=== PATIENT | female | born 1980 | race Caucasian/White ===

== ENCOUNTER 2022-07-02 14:58 | Emergency (ER) | payer OTHER, SELFPAY ==
[2022-07-02 15:12] VITALS: BP 125/75; PULSE 79; RESP 16; TEMP 37; O2SAT 100
--- NOTE | 2022-07-02 17:32 | ED.BACK ---
HPI - Back Pain/Injury General Chief Complaint: Back Pain/Injury Stated Complaint: Lower left back pain Time Seen by Provider: 07/02/22 17:25 Source: patient, RN notes reviewed and old records reviewed Mode of arrival: ambulatory Limitations: no limitations History of Present Illness HPI Narrative: 42-year-old female who presents to [facility] with left lower back for the past 4 days , increases when she tries to bend Patient denies any radiation of pain to legs. Patient denies any known injury to back states that she did go hunting over the weekend. Patient denies any tingling or numbness to legs, no difficulty passing urine or passing stools, or any saddle paraesthesia. Patient denies any urinary burning,frequency or pain with urination, no history of kidney stones. Patient has not had COVID vaccinations or any flu shot, did have COVID in June of 2021. MD elicited complaint: back pain Onset (ago): day(s) (4) Pain scale (0-10): 6 Exacerbating factors: other (bending) Treatments prior to arrival: NSAIDS Work related injury: No Related Data Allergies Allergy/AdvReac Type Severity Reaction Status Date / Time No Known Allergies Allergy Verified 07/02/22 16:29 Review of Systems Review of Systems: CONSTITUTIONAL: Denies fever, chills, or sweats. EYES: Denies visual changes, redness, or discharge. ENT: Denies rhinorrhea, congestion, sore throat, or otalgia. CARDIOVASCULAR: Denies chest pain, palpitations, or edema. RESPIRATORY: Denies cough or dyspnea. GASTROINTESTINAL: Denies abdominal pain, nausea, vomiting, or diarrhea. GENITOURINARY: Denies dysuria or hematuria. SKIN: Denies rash or itching. MUSCULOSKELETAL: Reports left lower back pain, non radiating,no joint pain, or myalgia. NEUROLOGIC: Denies headache, numbness, or weakness. PSYCHIATRIC: Denies anxiety or depression. All systems reviewed & are unremarkable except as noted in HPI and below [facility] Past Medical History Medical History (Updated 07/07/22 @ 21:27 by Anay Bond NP) COVID-19 06/2021 Social History Social History (Updated 07/07/22 @ 21:27 by Anay Bond NP) Smoking packs per day: 1 Smoking cigarettes per day: 20.0 Years smoked: 15 Smoking pack-years: 15.00 Smoking status: Current every day smoker Alcohol intake: current Alcohol use details: social Substance use type: does not use Gender identity (if verbalized by the patient): Female Comments At time of signature, agree with nursing past medical, surgical, social and family history. There is no relevant family history pertinent to the presenting complaint Exam Narrative: GENERAL: Well-appearing, well-nourished, and in no acute distress. HEAD: Normocephalic, atraumatic. EYES: PERRLA and EOMI. ENT: Nares clear, no rhinorrhea or epistaxis. Mucous membranes moist.TM' normal with good light reflex, throat pink with no lesions or swelling. NECK: Supple.no lymphadenopathy CHEST: Clear to auscultation. No respiratory distress.SAO2 100% on room air HEART: Regular rate and rhythm. No murmur heard. Normal peripheral pulses. ABDOMEN: Soft, nontender, nondistended, normal active bowel sounds.No CVA tenderness EXTREMITIES: Normal range of motion. No edema.Pain to left lower back nonradiating into buttocks or to legs, no tingling or numbness to lower extremitis. SKIN: Warm, dry, no rash NEURO: No focal deficits. Alert and oriented x3. Course Course Emergency Course: Patient is aware of diagnosis, understands and agrees to treatment plan.? Anticipatory guidance given.? Patient agrees to follow-up as directed and is aware of reasons to seek care at the emergency department. Portions of this record may have been created with voice recognition software Level of Care: Express Care Visit Vital Signs Vital signs: Vital Signs Temperature 37.0 C 07/02/22 15:12 Pulse Rate 79 07/02/22 15:12 Respiratory Rate 16 07/02/22 15:12 Blood Pressure 125/75 07/02/22 15:12 Pul
== END 2022-07-02 17:50 | disposition home or self-care (01) ==
PROVIDERS: Emergency Provider Registered Nurse
DX: S33.5XXA Sprain of ligaments of lumbar spine, initial encounter (principal); X58.XXXA Exposure to other specified factors, initial encounter; Z86.16 Personal history of COVID-19
CPT/HCPCS: 81003; 99213; G0463

== ENCOUNTER 2023-09-26 11:00 | Emergency (ER) | payer OTHER, SELFPAY ==
--- NOTE | ~2023-09-26 | XR_ITS ---
EXAMINATION: XR chest 2V DATE: 09/26/2023 11:31 INDICATION: Chest pain. Wheezing. Congestion. TECHNIQUE: Frontal and lateral views of the chest were obtained. COMPARISON: None. FINDINGS: There is no pneumonia, pleural effusion, or pneumothorax. The heart size is normal. IMPRESSION: 1. No acute cardiopulmonary disease. Reviewed, dictated and finalized at location A. YLENE TORCH BURNER
[2023-09-26 11:05] VITALS: BP 129/73; PULSE 114; RESP 16; TEMP 37.2; O2SAT 100
--- NOTE | 2023-09-26 11:07 | ECG_ITS ---
Measurements Intervals [place] Rate: 91 P: 75 IA: 101 QRS: 70 QRSD: 82 T: 66 QT: 354 QTc: 436 Interpretive Statements SINUS RHYTHM WITH SHORT IA INTERVAL BORDERLINE ECG NO PREVIOUS ECG AVAILABLE FOR COMPARISON Electronically Signed On 09-26-2023 16:55:59 RN ICU by Alan Oakes D.O.
--- NOTE | 2023-09-26 11:53 | ED.GENADULT ---
HPI - General Adult General Chief complaint: Chest Pain Stated complaint: Chest Pain/Shoulders Source: patient Mode of arrival: ambulatory Limitations: no limitations History of Present Illness HPI narrative: Pt presents for evaluation of chest pain. Symptoms started on Thursday of this week. Symptoms lasted until Thursday. She had recurrence of her symptoms again today. Pain is fairly diffuse, described as squeezing, rated 6/10 severity. Symptoms migrate up her neck into her ears bilaterally. She denies cough, shortness of breath, fever, chills, nausea, vomiting, sore throat. No recent sick contacts to her knowledge. She smokes approximately 1 ppd. no personal or family history of DVT/PE. No leg swelling. Mother has cardiomyopathy. Related Data Home Medications Medication Instructions Recorded Confirmed No Home Medications 09/26/23 09/26/23 Allergies Allergy/AdvReac Type Severity Reaction Status Date / Time No Known Allergies Allergy Verified 09/26/23 11:23 Review of Systems Review of Systems: CONSTITUTIONAL: Denies fever, chills, or sweats. EYES: Denies visual changes, redness, or discharge. ENT: Denies rhinorrhea, congestion, sore throat, or otalgia. CARDIOVASCULAR: Reports chest pain. Denies palpitations, or edema. RESPIRATORY: Denies cough or dyspnea. GASTROINTESTINAL: Denies abdominal pain, nausea, vomiting, or diarrhea. GENITOURINARY: Denies dysuria or hematuria. SKIN: Denies rash or itching. MUSCULOSKELETAL: Reports neck pain. Denies back pain, joint pain, or myalgia. NEUROLOGIC: Denies headache, numbness, dizziness, or weakness. PSYCHIATRIC: Denies anxiety or depression. [facility] Past Medical History Medical History COVID-19 06/2021 Surgical History Surgical History No pertinent past surgical history Family History Family History Mother Cardiomyopathy Social History Social History Smoking packs per day: 1 Smoking cigarettes per day: 20.0 Years smoked: 15 Smoking pack-years: 15.00 Smoking status: Current every day smoker Alcohol intake: current Alcohol use details: social Substance use type: does not use Living arrangements: with family Gender identity (if verbalized by the patient): Female Exam Narrative: GENERAL: Well-appearing, well-nourished, and in no acute distress. HEAD: Normocephalic, atraumatic. EYES: PERRLA and EOMI. ENT: Nares clear, no rhinorrhea or epistaxis. Mucous membranes moist. Oropharynx without tonsillar hypertrophy exudate or other lesions. Bilateral TMs pearly rodriguez nonbulging NECK: Supple. No adenopathy or masses. No carotid bruits or JVD CHEST: Clear to auscultation. No respiratory distress. No wheezes rales or rhonchi HEART: Regular rate and rhythm. No murmur heard. Normal peripheral pulses. ABDOMEN: Soft, nontender, nondistended, normal active bowel sounds. EXTREMITIES: Normal range of motion. No edema. SKIN: Warm, dry, no rash. NEURO: No focal deficits. Alert and oriented x3. PSYCH: Normal mood and affect. Course Course Emergency Course: This is a 43-year-old female who presented for evaluation of chest pain. EKG and chest x-ray were essentially normal. She has no infectious symptoms. I recommended she go to the hospital for further evaluation. [facility] I contacted [facility] Emergency Department spoke with RENEE Mcqueen, who indicates that Dr. Munguia will accept pt to Dept there. Patient in agreement with plan of care, including plans for transfer Level of Care: Express Care Visit Vital Signs Vital signs: Vital Signs Temperature 37.2 C 09/26/23 11:05 Pulse Rate 114 H 09/26/23 11:05 Respiratory Rate 16 09/26/23 11:0
== END 2023-09-26 11:55 | disposition short-term general hospital (02) ==
PROVIDERS: Emergency Provider Nurse Practitioner
DX: R07.89 Other chest pain (principal); F17.210 Nicotine dependence, cigarettes, uncomplicated; Z86.16 Personal history of COVID-19
CPT/HCPCS: 71046; 93005; 99213; G0463

== ENCOUNTER 2024-02-03 11:43 | Emergency (ER) | payer OTHER, SELFPAY ==
--- NOTE | ~2024-02-03 | XR_ITS ---
EXAMINATION: XR tibia fibula RT 2V, XR foot RT min 3V DATE: 02/03/2024 12:32 INDICATION: Fall downstairs with generalized pain at the right lower leg and foot TECHNIQUE: 1. Anteroposterior and lateral views of the right lower leg were obtained. 2. Dorsoplantar, two oblique and lateral views of the right foot were obtained. COMPARISON: None. FINDINGS: Bone alignment is normal from the right knee through the right foot. No fractures identified. Mild os teoarthritis at the right first metatarsophalangeal joint. Remaining joint spaces are normal. Soft ti ssues are unremarkable. No right knee or ankle joint effusion. IMPRESSION: 1. Mild osteoarthritis at the right first metatarsophalangeal joint. Otherwise normal right foot and lower leg radiographs. Reviewed, dictated and finalized at location A. IMPRESSION: 1. Mild osteoarthritis at the right first metatarsophalangeal joint. Otherwise normal right foot and lower leg radiographs.
[2024-02-03 11:48] VITALS: BP 106/68; PULSE 92; RESP 16; TEMP 37.1; O2SAT 100
--- NOTE | 2024-02-03 12:14 | ED.LOWEXIN ---
HPI - Extremity Injury (Lower) General Chief Complaint: Extremity Injury, Lower Stated Complaint: Right leg injury (knee to foot) Time Seen by Provider: 02/03/24 12:14 Source: patient, RN notes reviewed and old records reviewed Mode of arrival: ambulatory Limitations: no limitations History of Present Illness HPI Narrative: 43 year old female presents to [facility] with complaints of dog hitting the back of her right knee causing her to trip and she fell down 3 steps this morning. Patient reports pain to posterior aspect of her right knee, down her right leg and into her right foot. Patient has no bruising noted or obvious deformity to left leg or foot. Patient reports that she took Diclofenac 2 hours ago. MD complaint: knee injury, leg injury and foot injury Onset (ago): hour(s) (this morning) Type of Injury: blunt and other (fall) Place: home Severity scale (1-10): 7 Treatments prior to arrival: other (Diclofenac) Related Data Home Medications Medication Instructions Recorded Confirmed No Home Medications 09/26/23 02/03/24 Allergies Allergy/AdvReac Type Severity Reaction Status Date / Time No Known Allergies Allergy Verified 02/03/24 12:28 Review of Systems Review of Systems: CONSTITUTIONAL: Denies fever, chills, or sweats. EYES: Denies visual changes, redness, or discharge. ENT: Denies rhinorrhea, congestion, sore throat, or otalgia. CARDIOVASCULAR: Denies chest pain, palpitations, or edema. RESPIRATORY: Denies cough or dyspnea. GASTROINTESTINAL: Denies abdominal pain, nausea, vomiting, or diarrhea. GENITOURINARY: Denies dysuria or hematuria. SKIN: Denies rash or itching. MUSCULOSKELETAL: Denies back pain,positive for posterior right knee pain, pain down right leg and into foot, or myalgia. NEUROLOGIC: Denies headache, numbness, or weakness. PSYCHIATRIC: Denies anxiety or depression. All systems reviewed & are unremarkable except as noted in HPI and below PMFSH Past Medical History Medical History Ankle fracture, right COVID-19 06/2021 Osteoarthritis Surgical History Surgical History H/O: hysterectomy Family History Family History Mother Cardiomyopathy Social History Social History Smoking packs per day: 1 Smoking cigarettes per day: 20.0 Years smoked: 15 Smoking pack-years: 15.00 Smoking status: Current every day smoker Alcohol intake: current Alcohol use details: social Substance use type: does not use Living arrangements: with family Gender identity (if verbalized by the patient): Female Comments At time of signature, agree with nursing past medical, surgical, social and family history. There is no relevant family history pertinent to the presenting complaint Exam Narrative: GENERAL: Well-appearing, well-nourished, and in no acute distress. HEAD: Normocephalic, atraumatic. EYES: PERRLA and EOMI. ENT: Nares clear, no rhinorrhea or epistaxis. Mucous membranes moist. NECK: Supple.no lymphadenopathy CHEST: Clear to auscultation. No respiratory distress.SAO2 100% on room air HEART: Regular rate and rhythm. No murmur heard. Normal peripheral pulses. ABDOMEN: Soft, nontender, nondistended, normal active bowel sounds. EXTREMITIES: Normal range of motion. No edema. Pain to posterior knee down right leg and radiates into foot with no obvious deformity or swelling noted or bruising, pain increased with weight bearing strong pedal pulse present right foot, reports no tingling or numbness SKIN: Warm, dry, no rash. NEURO: No focal deficits. Alert and oriented x3. Course Course Emergency Course: Patient is aware of diagnosis, understands and agrees to treatment plan.? Anticipatory guidance given.? Patient agrees to follow-up as directed and is aware of
== END 2024-02-03 13:05 | disposition home or self-care (01) ==
PROVIDERS: Emergency Provider Registered Nurse; PCP Physician Assistant
DX: S86.912A Strain of unspecified muscle(s) and tendon(s) at lower leg level, left leg, initial encounter (principal); S96.911A Strain of unspecified muscle and tendon at ankle and foot level, right foot, initial encounter; W10.9XXA Fall (on) (from) unspecified stairs and steps, initial encounter; F17.210 Nicotine dependence, cigarettes, uncomplicated; M19.90 Unspecified osteoarthritis, unspecified site; Z86.16 Personal history of COVID-19
CPT/HCPCS: 73590; 73630; 99214; G0463

== ENCOUNTER 2024-10-20 12:24 | Emergency (ER) | payer OTHER, SELFPAY ==
--- NOTE | ~2024-10-20 | XR_ITS ---
EXAMINATION: XR foot RT min 3V DATE: 10/20/2024 13:07 INDICATION: Right ankle injury. TECHNIQUE: 4 views of right foot were obtained. COMPARISON: Right foot radiographs 02/03/2024 FINDINGS: There is a nondisplaced intra-articular transverse fracture of base of fifth metatarsal. Brenda int spaces are normal. IMPRESSION: 1. Nondisplaced intra-articular transverse fracture of base of fifth metatarsal. Reviewed, dictated and finalized at location A. IMPRESSION: 1. Nondisplaced intra-articular transverse fracture of base of fifth metatarsal .
[2024-10-20 12:36] VITALS: BP 118/78; PULSE 78; RESP 14; TEMP 36.9; O2SAT 100
--- OUTSIDE RECORDS SUMMARY | 2024-10-20 13:12 | XMS_ITS | Clinical Summary ---
Author Organization [facility] Address [address] [place] [address] Phone Care Team Providers Care Flag Car Driver Name Role Phone Scarlet Torres PAC Primary Care Pro vider Allergies No known active allergies Medications COMPOUNDED MEDICATION Take 5-10 mL by mouth 4 times daily as needed for Other. for mouth/throat discomfort. Pharmacist Mixture Instructions *ALUM & MAG HYDROXIDE-SIMETH 200-200-20 MG/5ML PO SUSP -- 360 mL *DIPEHENHYDRAMIN E HCL 12.5 MG/5ML PO ELIX -- 50 mL *LIDOCAINE VISCOUS 2% MT SOLN -- 80 mL 490 mL 3 4 Active Active Problems No known active problems Family History Medical History Relation Name Comments Kidney Disease Father Idipathic Hypertrophic Subaortic Stenosis Mother Relation Name Status Comments Father Mother Alive Social History Tobacco Use Types Packs/Day Years Used Date Smoking Tobacco: Every Day Cigarettes Tobacco Cessation:Ready to Q uit: No; Counseling Given: No Alcohol Use Standard Drinks/Week Comments Yes 0 (1 standard drink = 0.6 oz pur e alcohol) occasionally [employer] Utilities Answer Date Recorded In the past 12 months has [employer], gas, oil, or water [employer] threatened to shut off services in your home? No 12/28/2023 Social Connection and Isolat ion Panel [NHANES] Answer Date Recorded In a typical week, how many times do you talk on the phone with family, friends, or neighbors? More than three times a week 12/28/2023 How often do you get togethe r with friends or relatives? Twice a week 12/28/2023 Attends [employer] Services Not on file 12/27 Active Member of Clubs or Organizations Not on f ile 12/28/2023 Attends Club or Organization Meetings Not on verena e 12/28/2023 Marital Status Not on file 12/28/2023 AUDIT-C Answer Date Recorded Q1: How often do you have a drink containing alc ohol? 2-4 times a month 12/28/2023 Average Number of Drinks Not on file 024 Frequency of Binge Drinking Not on file 09/2023 Overall Financial Resource Strain (CARDIA) Answe r Date Recorded How hard is it for you to pa y for the very basics like food, housing, medical care, and heating? Not hard at all 12/28/2023 [facility] Occupat ional Health - Occupational Stress Questionnaire Answer Date Recorded Do you feel stress - tense, restless, nervous, or anxious, or unable to sleep at night because your mind is troubled all the time - these days? Only a little 12/28/2023 Exercise Vital Sign Answer Date Recorde d On average, how many days pe r week do you engage in moderate to strenuous exercise (like a brisk walk)? 4 days Minutes of Exercise per Session Not on file 12/28/2023 Hunger Vital Sign Answer Date Recorded Within the past 12 months, y ou worried that your food would run out before you got the money to buy more. Never true 12/28/19 24 Within the past 12 months, t he food you bought just didn't last and you didn't have money to get more. Never true 12/28/2023 PRAPARE - Transportation Answer Date Re corded In the past 12 months, has l ack of transportation kept you from medical appointments or from getting medications? No 09/2023 In the past 12 months, has l ack of transportation kept you from meetings, work, or from getting things needed for daily living? No 12/28/2023 Housing Stability Vital Sign Answer Pineda e Recorded In the last 12 months, was t here a time when you were not able to pay the mortgage or rent on time? No 12/28/2023 In the last 12 months, how many places have you lived? 1 12/28/2023 In the last 12 months, was t here a time when you did not have a steady place to sleep or slept in a penitentiary (including now)? No 12/28/2023 Comments No Sex and Gender Information Value Date Recorded Sex Assigned at Not on file Legal Sex Female 10:21 PM CDT Gender Identity Not on file Sexual Orientation Not on file Last Filed Vital Signs Vital Sign Reading Time Taken Comments Blood Pressure 98/70 04/01/2024 1:02 PM CDT Pulse 90 04/01/2024 1:02 PM CDT Temperature 36.7 C (98 F) 04/01/2024 1:02 PM CDT Respiratory Rate 12 04/01/2024 1:02 PM CDT Oxygen Saturation 97% 04/01/2024 1:02 PM CDT Inhaled Oxygen Concentration - - Weight 47.2 kg (104 lb) 04/01/2024 1:02 PM CDT Height 154.9 cm (5' 1 ) 12/28/2023 12:39 PM CDT Body Mass Index 19.65 12/28/2023 12:39 PM CDT Plan of Treatment Health Maintenance Due Date Last Done Comments Hepatitis C Virus (HCV) Screening 1979 Mammogram 1979 TdaP Immunization 1979 Hepatitis B Immunization (1 of 3 - 19+ 3-dose series) 1998 Pneumococcal Immunization Co mbined (1 of 2 - PCV) 1998 Discussion re Starting/Frequ ency of Mammograms 2019 Influenza Immunization (#1) 2024 SARS-COV-2 Immunization ( season) 2024 Colonoscopy 2024 Colorectal Cancer Screening 2024 Respiratory Syncytial Virus (RSV) Immunization (Adult) (1 - 1-dose 75+ series) 2054 Meningococcal Immunization (ACWY) Aged Out No longer eligible based on patient's age to complete this topic Rotavirus Immunization Aged Out No lo nger eligible based on patient's age to complete this topic Insurance MEDICAID [employer] Care Teams Flag Car Driver Relationship Specialty Start Date End Date Scarlet Torres, KELTON [address] [place] [address] PCP - General Physician Weighmaster Lead 10/02/23
--- NOTE | 2024-10-20 13:13 | ED.LOWEXIN ---
HPI - Extremity Injury (Lower) General Chief Complaint: Extremity Injury, Lower Stated Complaint: right foot injury Time Seen by Provider: 10/20/24 12:45 Source: patient, RN notes reviewed and old records reviewed Mode of arrival: ambulatory (crutches) Limitations: no limitations History of Present Illness HPI Narrative: 44-year-old female who presents to [facility] with complaints of injury to her right foot which occurred 2 days ago when her right foot rolled when walking dog down stairs Patient has noted pain, bruising, and swelling noted to lateral aspect f her right foot. pedal pulse strong right foot. Patient reports that she has been icing her right foot and has been taking Ibuprofen for her discomfort. Patient has own crutches from home has had previous right ankle fracture. MD complaint: foot injury (right) Onset (ago): day(s) (2) Injury: Right: foot (right lateral foot) Type of Injury: other (rolled right foot ) Place: home Severity scale (1-10): 3 Exacerbating factors: weight bearing and movement Treatments prior to arrival: cold therapy, NSAIDS and other (using crutches) Related Data Home Medications ?Medication ?Instructions ?Recorded ?Confirmed ?Last Taken ?Type No Home Medications 09/26/23 10/20/24 Unknown History Allergies Allergy/AdvReac Type Severity Reaction Status Date / Time No Known Allergies Allergy Verified 10/20/24 12:55 Review of Systems Review of Systems: CONSTITUTIONAL: Denies fever, chills, or sweats. EYES: Denies visual changes, redness, or discharge. ENT: Denies rhinorrhea, congestion, sore throat, or otalgia. CARDIOVASCULAR: Denies chest pain, palpitations, or edema. RESPIRATORY: Denies cough or dyspnea. GASTROINTESTINAL: Denies abdominal pain, nausea, vomiting, or diarrhea. GENITOURINARY: Denies dysuria or hematuria. SKIN: Denies rash or itching. MUSCULOSKELETAL: Denies back pain,positive for pain to right lateral foot from injury, or myalgia. NEUROLOGIC: Denies headache, numbness, or weakness. PSYCHIATRIC: Denies anxiety or depression. All systems reviewed & are unremarkable except as noted in HPI and below PMFSH Past Medical History Medical History Ankle fracture, right Osteoarthritis COVID-19 06/2021 Surgical History Surgical History History of eye surgery surgery for strabismus when child H/O: hysterectomy Family History Family History Mother Cardiomyopathy Social History Social History Smoking packs per day: 1 Smoking cigarettes per day: 20.0 Years smoked: 15 Smoking pack-years: 15.00 Smoking status: Current every day smoker Alcohol intake: current Alcohol use details: social Substance use type: does not use Living arrangements: with family Gender identity (if verbalized by the patient): Female Comments At time of signature, agree with nursing past medical, surgical, social and family history. There is no relevant family history pertinent to the presenting complaint Exam Narrative: GENERAL: Well-appearing, well-nourished, and in no acute distress. HEAD: Normocephalic, atraumatic. EYES: PERRLA and EOMI. ENT: Nares clear, no rhinorrhea or epistaxis. Mucous membranes moist. NECK: Supple.no lymphadenopathy CHEST: Clear to auscultation. No respiratory distress.SAO2 100% on room air HEART: Regular rate and rhythm. No murmur heard. Normal peripheral pulses. ABDOMEN: Soft, nontender, nondistended, normal active bowel sounds. EXTREMITIES: Normal range of motion. No edema. Exception noted to right lateral foot with bruising swelling and pain from injury. Patient has strong pedal pulse to right foot, denies any tingling or numbness to right lateral foot or toes, foot warm and pink SKIN: Warm, dry, no rash. NEURO: No focal deficits. Alert and oriented x3. Course Course Emergency Course: Patient is aware of diagnosis, understands and agrees to treatment plan.? Anticipatory guidance given.? Patient agrees to follow-up as directed and is aware of reasons to seek care at the emergency department. Portions of this record may have been created with voice recognition software Level of Care: Express Care Visit Vital Signs Vital signs: Vital Signs Temperature 36.9 C 10/20/24 12:36 Pulse Rate 78 10/20/24 12:36 Respiratory Rate 14 10/20/24 12:36 Blood Pressure 118/78 10/20/24 12:36 Pulse Oximetry 100 10/20/24 12:36 Oxygen Delivery Room Air 10/20/24 12:36 Temperature 36.9 C 10/20/24 12:36 Pulse Rate 78 10/20/24 12:36 Respiratory Rate 14 10/20/24 12:36 Blood Pressure 118/78 10/20/24 12:36 Pulse Oximetry 100 10/20/24 12:36 Oxygen Delivery Room Air 10/20/24 12:36 Reviewed Procedures Orthopedic Splinting/Casting foot: Splinting/Casting Date: 10/20/24 Splinting/Casting Time: 14:04 Side: right Lower Extremity Injury Location: foot Lower Extremity Immobilizer: posterior splint Splint: customized in ED OCL: short leg Pre-Procedure Neuro Vascular Exam: normal Post-Procedure Neuro Vascular Exam: normal Additional Comments: Patient tolerated splinting of right foot without increased pain, Patient brought own crutches from home. MDM - Extremity Injury (Lower) Differential Diagnosis Differential diagnosis: Likely fracture of toe and other (right 5th metatarsal fracture, pain right foot) Medical Records Attestation: I reviewed the patient's medical records. Imaging Data Attestation: I personally reviewed and interpreted this imaging study as follows: My impression: Right Foot: non displaced intra=articular transverse fracture base if 5th metatarsal Radiologist's impression: [place] [id number] XRay Report Signed Patient: Maria Victoria Briseno : 1980 MR#: [id number] Age: 44 Acct:[id number] Loc: [facility] ADM Date: 10/20/24Attending Dr: Ordering Physician: Anay Bond APRN Date of Service: 10/20/24 Procedure(s): XR foot RT min 3V Accession Number(s): [id number] cc: Brian, Scarlet YAO; Anay Bond APRN~ EXAMINATION: XR foot RT min 3V DATE: 10/20/2024 13:07 INDICATION: Right ankle injury. TECHNIQUE: 4 views of right foot were obtained. COMPARISON: Right foot radiographs 02/03/2024 FINDINGS: There is a nondisplaced intra-articular transverse fracture of base of fifth metatarsal. Joint spaces are normal. IMPRESSION: 1. Nondisplaced intra-articular transverse fracture of base of fifth metatarsal. Reviewed, dictated and finalized at location A. Please be advised this is a medical document. It is intended for veet-[id number] communication. It is written in medical language and may contain unfamiliar abbreviations or verbiage. Medical documents are intended to carry relevant information, facts as evident, and the clinical opinion of the practitioner at the time of the encounter. This report may have been done utilizing a voice recognition system. Attempts have been made to correct errors. However, there may be uncorrected grammatical, spelling, and recognition errors present. The file time of this note does not necessarily represent the time of service. Dictated By: Nahun Taveras MD 10/20/24 1322 Signed By: <Electronically signed by Nahun Taveras MD in OV> Critical Care Time Critical Care Time Critical Care Time: No Discharge Plan Discharge Clinical Impression: Fracture of base of fifth metatarsal bone of right foot Qualifiers: Encounter type: initial encounter Fracture type: closed Qualified Code(s): S92.351A - Displaced fracture of fifth metatarsal bone, right foot, initial encounter for closed fracture Patient Disposition: Home, Self-Care Condition: Stable Instructions: Foot Fracture in Adults (ED) Additional Instructions: orthopedic splint as directed until seen by orthopedic Crutches as directed nonweightbearing right foot Tylenol for lesser pain Ibuprofen regularly for the next 2-3 days for the inflammation Use the medication as provided for severe pain--caution each tablet contains 325 mg of Tylenol--the maximum dose of Tylenol is 4000 mg in 24 hours. This medication may cause constipation consider starting a laxative at this time Follow-up with orthopedic surgeon patient reports would like to see Dr. Palacios she is to call office to set up appointment Follow-up with PCP if further problems or concerns Ice to the area 20-30 minutes 4-6 times a day Elevate above heart Patient Language: Faroese Prescriptions: New hydrocodone-acetaminophen 5-325 mg tablet 1 tablet PO Q6H PRN (Reason: pain) Qty: 10 0RF No Action No Home Medications Follow-up/Referrals: Brian,NAJMA Novak [Primary Care Provider] - Time of Disposition: 14:15 Quality Josias Coma Scale Eyes: Open Verbal: Oriented and Alert Motor: Follows Commands Josias Coma Total Score: 15
== END 2024-10-20 14:15 | disposition home or self-care (01) ==
PROVIDERS: Emergency Provider Registered Nurse; PCP Physician Assistant
DX: S92.351A Displaced fracture of fifth metatarsal bone, right foot, initial encounter for closed fracture (principal); X50.9XXA Other and unspecified overexertion or strenuous movements or postures, initial encounter; Y93.K1 Activity, walking an animal; M19.90 Unspecified osteoarthritis, unspecified site; F17.210 Nicotine dependence, cigarettes, uncomplicated; Z86.16 Personal history of COVID-19
CPT/HCPCS: 29515; 73630; 99213; 99214; G0463